=== PATIENT | male | born 1965 | race Caucasian/White ===

== ENCOUNTER 2018-07-03 09:13 | Inpatient (IN) ==
--- NOTE | 2018-07-03 07:31 | Anesthesia Evaluation PreOp ---
<[place] - Last Filed: 07/03/18 07:32> Date of Encounter: 07/03/18 - Past History Planned Operation: R robo total hip Cardiac History: HTN Pulmonary History: COPD Anesthesia History: Past Anesthesia (previous MAC 3 grade 2,) Alcohol Use: none Drug use: none Medications and Allergies Aspirin Enteric Coated [Aspirin EC] 325 mg PO BID #20 tablet. 07/03/18 [Rx] OxyCODONE Immed Rel [Roxicodone 5 MG] 5 mg PO Q6HR PRN 5 Days #20 tablet 07/03/18 [Rx] Allergy/AdvReac Type Severity Reaction Status Date / Time acetaminophen [From Tylenol] AdvReac See Verified 07/03/18 10:39 Comments - Meds/Allergy Pre-op Review Medications Reviewed: Yes Allergies Reviewed: Yes Anesthesia Results - Labs Laboratory Tests 06/25/18 06/25/18 06/25/18 14:39 14:39 14:39 WBC 11.0 Hgb 16.1 Hct 46.6 Plt Count 414 H PT 11.8 INR 1.0 APTT 34.0 Sodium 135 L Potassium 3.6 Chloride 101 Carbon Dioxide 24 BUN 15 Creatinine 1.06 Est GFR (Non-Af Amer) > 60 - Imaging EKG: report reviewed (sinus) <Ralph Hernandez - Last Filed: 07/03/18 10:41> Date of Encounter: 07/03/18 Time of Encounter: 10:37 - Past History Cardiac History: Other (EXCELLENT EXCERCISE TOLERANCE PRIOR TO HIP PAIN) Pulmonary History: Smoker (1-2 PPD) 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
[2018-07-03] MEDS ORDERED: CeFAZolin Syr 2,000MG/20 ML 2,000 MG/20 ML SYRINGE IVPB ONE (09:42)
[2018-07-03] MEDS ORDERED: Albuterol 2.5 MG/3 ML NEBULIZER IH ONE (09:42)
[2018-07-03] MEDS ORDERED: Albuterol 2.5 MG/3 ML NEBULIZER ONE (09:45)
[2018-07-03] MEDS: Ringers Solution, Lactated 1,000 ML IVC SCH ×2 (09:51→13:36)
--- NOTE | 2018-07-03 10:07 | History & Physical Report ---
Date of Encounter: 07/03/18 Time of Encounter: 10:07 24 Hour HP Update - Instructions Instructions: If the History and Physical is less than 30 days old and was completed prior to A.M. admission and or procedure and has NOT been updated on calendar day of procedure please complete this update prior to performing procedure. - Update Patient reports changes in Medical Condition: No Changes in examination, assessment, or condition: No Changes in Medication: No Preop tests/diagnostics Reviewed: Yes Surgery Remains Indicated: Yes Consent for Planned Operative Procedure(s) Verified: Yes - Pre-Operative Checklist Preoperative Checklist Indicated: No Prophylactic Antibiotic Ordered: Yes Is VTE Prophylaxis Indicated?: Yes
[2018-07-03] MEDS ORDERED: Acetaminophen IV 1,000 MG/100 ML INFUS..BTL IVPB ONE (10:33)
[2018-07-03] MEDS ORDERED: *HR* Methadone 10 MG TABLET PO ONE ×2 (10:33→10:44)
[2018-07-03] MEDS ORDERED: *HR* HYDROmorphone (PF) 1 MG/ML SYRINGE IVP PRN (10:34)
[2018-07-03] MEDS ORDERED: Famotidine 20 MG/2 ML VIAL IVP ONE (10:34)
[2018-07-03] MEDS ORDERED: *HR* OxyCODONE Immed Rel 5 MG TABLET PO PRN (10:34)
[2018-07-03] MEDS ORDERED: *HR* Promethazine 25 MG/ML VIAL IVP PRN (10:34)
[2018-07-03] MEDS ORDERED: *HR* Meperidine 25 MG/ML SYRINGE IVP PRN (10:34)
--- NOTE | 2018-07-03 10:37 | Discharge Summary ---
<Donato Conklin - Last Filed: 07/03/18 10:35> Orders not resulted at time of discharge: Pending orders 07/03/18 10:08 XR hip complete RT [XR] Routine Hemoglobin and Hematocrit [HEME] Routine Date of Encounter: 07/03/18 - Discharge Diagnosis (1) Arthritis of right hip Priority: Primary Status: Chronic (2) Obesity (BMI 30.0-34.9) Priority: Secondary Status: Chronic (3) Hypertension Priority: Secondary Status: Chronic Qualifiers: Hypertension type: unspecified Qualified Code(s): I10 - Essential (primary) hypertension (4) COPD (chronic obstructive pulmonary disease) Priority: Secondary Status: Chronic Qualifiers: COPD type: unspecified COPD Qualified Code(s): J44.9 - Chronic obstructive pulmonary disease, unspecified - Hospital Course Hospital course: Mr. Singh is a 53 year old male - Time Spent with Patient Total time spent providing and/or coordinating discharge services: - Discharge Medications Home Medications: Albuterol Sulfate [Ventolin Hfa] 2 puff IH Q6H PRN 07/03/18 [History] Aspirin Enteric Coated [Aspirin EC] 325 mg PO BID #20 tablet. 07/03/18 [Rx] Budesonide/Formoterol 160/4.5 [Symbicort 160/4.5] 2 puff IH DAILY 07/03/18 [History] Celecoxib [Celebrex] 200 mg PO DAILY 07/03/18 [History] Lisinopril/Hydrochlorothiazide [Zestoretic 10-12.5 mg Tablet] 1 tab PO DAILY 07/03/18 [History] Omeprazole [PriLOSEC] 20 mg PO DAILY 07/03/18 [History] OxyCODONE Immed Rel [Roxicodone 5 MG] 5 mg PO Q6HR PRN 5 Days #20 tablet 07/03/18 [Rx] Tramadol HCl [Ultram] 50 mg PO QID PRN 07/03/18 [History] Docusate [Colace] 100 mg PO BID capsule 07/04/18 [Rx] Allergies/Adverse Reactions: Allergy/AdvReac Type Severity Reaction Status Date / Time acetaminophen [From Tylenol] AdvReac See Verified 07/03/18 10:39 Comments Primary care physician: Ephraim Lim MD - Patient Status Disposition: Home Health Service Condition: Good - Discharge Instructions Follow Up With: Ephraim Lim MD [Primary Care Provider] - Additional Instructions: Discharge Instructions: Total Hip Replacement Please call [facility] ([phone]), your Primary Care Physician, or report to the Emergency Room if you have any of the following symptoms: Nausea, vomiting, fever greater that 101.5, swelling, chest pain, shortness of breath, increased pain/redness/drainage/odor for your incision site, numbness/tingling, or any other concerning symptoms. ACTIVITY:Weight-bearing as tolerated for 8 weeks with hip dislocation precautions that physical therapy taught you. You may progress as tolerated under the guidance of your physical therapist. You do not need to sleep with a pillow between your legs. You can also seep on the operative side or on your stomach. Incentive Spirometer 10 times an hour. MEDICATIONS: Upon discharge resume your home medications. Take all the medications as prescribed. Take a stool softener if taking narcotic pain medications. Stool softeners are only effective if you drink enough fluids. D rink 6-8 glass of water or fluids a day, unless this is not allowed for another health problem. Despite using stool softeners, if you haven't had a bowel movement in 3 days, please switch to a gentle laxative. Gentle laxatives are sold over the counter. You should have a bowel movement within 24 hours, if not call the office. You will be discharged from the hospital with a prescription for pain medication. You are encouraged to decrease the use of narcotic pain medication as tolerated. Should you require a refill, please call the office. [facility] prescribes narcotic pain medication for only 4-6 weeks after surgery. If you require pain medication beyond this time period, you may be referred to your Primary Care Physician or to the Pain Clinic for further evaluation. Plan ahead for refills on pain medication as many narcotics either need to be picked up at the office or mailed. It is best to call 48-72 hours in advance of needing a prescription refill so you don't run out of medication. To help control the post-operative pain, you may take NSAIDs (Aleve,Advil, Motrin, ibuprofen, naprosyn) or Tylenol as prescribed on the bottle in addition to the pain medication. ANTICOAGULATION (blood thinners): Continue your Aspirin, Lovenox or Coumadin as prescribed to help prevent a blood clot in the leg or in the lungs. As long as your incision remains dry and you tolerate the NSAIDs (Aleve, Advil, Motrin, Ibuprofen, Naprosyn), it is OK to use the NSAIDS while you are taking your anticoagulation medication. Should your incision start to drain, stop the NSAID and contact our office. Common symptoms of blood clot in the legs include: localized pain, swelling, calf tenderness, redness or discoloration of the skin. Blood clot in the lung symptoms include: shortness of breath, rapid pulse, sweating, and chest pain that worsens with deep breathing, coughing up blood, lightheadedness, feelings of anxiety. If you experience any of these symptoms notify your physician immediately, go to the emergency room, or if having trouble breathing, call 911. WOUND CARE: Leave the dressing on for 7 to 10days. You may change the dressing if it is saturated greater than 50%. Do not get the dressing wet at anytime. Wash your hands with antibacterial soap, rinse and dry prior to any wound care. If you have brian the visiting nurse or rehab facility can remove the stapes 10-14 days after surgery and place steri-strips across the wound. Leave the steri-strips in place until they fall off on their own. You may let water from the shower run on top of the steri-strips. If you do not have a visiting nurse or rehab facility, you will need to return to the office at 10-14 days for the brian to be removed. If you have itching or redness around the dressing call the office. FOLLOW-UP: Please follow up with your surgeon in the orthopedic clinic in 6 weeks from the day of surgery. If you have brian that need to be removed, you will need to come back to the office in 10-14 days from the day of surgery. <Sharda Petit - Last Filed: 07/04/18 14:03> Orders not resulted at time of discharge: Pending orders 07/03/18 12:40 Surgical Pathology [PTH] Routine 07/05/18 04:00 Basic Metabolic Panel AM 0400 Hemoglobin and Hematocrit [HEME] AM 0400 Date of Encounter: 07/04/18 Time of Encounter: 13:55 - Discharge Diagnosis (1) Status post total hip replacement, right Priority: Primary Status: Acute Comments: Opsite dressing, leave intact until first post-operative visit. If dressing becomes >50% saturated, contact office, remove dressing and place appropriate dressing in its place. Do not allow for dressing to get wet. Zipline/[place] in place, plan to remove at post-operative day #14-16. Total Joint Precautions x 6 weeks Apply cold therapy wrap 3-6x/day for 20 minutes at a time. Encourage ambulation throughout the day Use Incentive spirometer 10x/hour. Elevate affected extremity above heart as tolerated. Brace: Wear hip abductor brace at night x 6 weeks. (2) Arthritis of right hip Priority: Primary Status: Chronic (3) COPD (chronic obstructive pulmonary disease) Status: Chronic Qualifiers: COPD type: unspecified COPD Qualified Code(s): J44.9 - Chronic obstructive pulmonary disease, unspecified (4) Hypertension Status: Chronic Qualifiers: Hypertension type: unspecified Qualified Code(s): I10 - Essential (primary) hypertension (5) Obesity (BMI 30.0-34.9) Status: Chronic - Hospital Course Hospital course: Mr. Singh is a 53 year old male, status post Right THR 07/03. Patient had uneventful postoperative course. Stable for discharge. Patient seen at bedside, without complaints. A&O x 3 Afebrile, vital signs stable. Vital Signs Temp Pulse Resp BP Pulse Ox 07/04/18 10:53 97.9 F 82 16 142/80 95 07/04/18 06:58 97.7 F 75 18 126/82 95 07/04/18 03:50 98.2 F 67 16 135/81 96 07/03/18 22:48 97.3 F L 62 16 122/78 96 07/03/18 20:11 96 07/03/18 19:56 146/81 07/03/18 18:31 98.2 F 60 16 106/68 96 07/03/18 15:31 97.4 F L 60 18 99/75 98 07/03/18 14:43 97.6 F 54 14 139/81 100 07/03/18 14:05 97.5 F L 54 14 116/79 98 Intake and Output 07/03/18 07/04/18 07/04/18 23:59 07:59 15:59 Intake Total 720 / 720 100 / 100 360 / 360 Output Total 250 / 250 275 / 275 250 / 250 Balance 470 / 470 -175 / -175 110 / 110 Intake: IV Fluids 100 / 100 100 / 100 Ancef 2,000 MG In 0.9 % Sodium 100 / 100 100 / 100 Chloride 100 ML @ 200 mls/hr IVPB Q8H JAIME Rx#:[id number] Oral 620 / 620 360 / 360 Output: Urine 250 / 250 275 / 275 250 / 250 Other: Meal Dinner Lunch Percent of Meal Consumed 95% 50% # Voids 200 Weight 95.1 kg Patient Weight 07/04/18 23:59 Weight 95.1 kg Labs reviewed. H/H - stable, asymptomatic Short CBC 07/04/18 07/03/18 Range/Units 04:44 13:12 Hgb 11.5 L 12.5 L (12.9-16.9) g/dL Hct 33.9 L 36.5 L (37.5-50.1) % BMP 07/04/18 Range/Units 04:44 Sodium 135 L (136-145) mEq/L Potassium 3.7 (3.5-5.1) mEq/L Chloride 104 (98-107) mEq/L Carbon Dioxide 26 (23-29) mEq/L BUN 17 (6-20) mg/dL Creatinine 0.93 (0.70-1.30) mg/dL Glucose 109 H (70-105) mg/dL Calcium 8.5 L (8.6-10.3) mg/dL Pain control: adequate Participating in PT. All questions and concerns addressed. Educated on use of incentive spirometer. Encouraged ambulation and proper hydration. Patient educated on post-operative restrictions and post-operative care. Assessment and plan: Continue with postoperative care Discharge plan: Home with HH, discharge today - Time Spent with Patient Total time spent providing and/or coordinating discharge services: Date of admission: 07/03/18 14:05 Primary care physician: Ephraim Lim MD Consults: 07/03/18 13:54 Consult to Nurse Navigator [CONS] Routine Comment: ortho navigator Consult to Occupational Therapy [CONS] Routine Comment: Evaluate, develop and implement POC Reason for Consult: total hip replacement Does patient have active BEDREST order?: No Is patient medically & hemodynamically stable?: Yes Consult to Physical Therapy [CONS] Routine Comment: Evaluate, develop and implement POC Reason for Consult: total hip replacement Does patient have active BEDREST order?: No Is patient medically & hemodynamically stable?: Yes Consult to Adult Neuropsychologist [CONS] Routine Reason for SW Consult: post op joint replacement RT Post Op Consult [CONS] Routine Anticipated date of discharge: 07/04/18 Labs on day of discharge: Labs from last 24 hours 07/04/18 07/04/18 07/03/18 04:44 04:44 13:12 Hgb 11.5 L 12.5 L Hct 33.9 L 36.5 L Sodium 135 L Potassium 3.7 Chloride 104 Carbon Dioxide 26 BUN 17 Creatinine 0.93 Est GFR ( Amer) > 60 Est GFR (Non-Af Amer) > 60 BUN/Creatinine Ratio 18 Glucose 109 H Calculated Osmolality 282 Calcium 8.5 L - Impressions ITS Impressions Hip X-Ray 07/03/18 10:08 IMPRESSION: 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 D/ / Altaf Burkett MD / Altaf Burkett MD Interpreting Provider: Altaf Burkett MD - Patient Status Functional capacity at discharge: uses cane/walker Overall status at discharge: patient is progressing back to baseline
[2018-07-03] MEDS ORDERED: Famotidine 20 MG/2 ML VIAL ONE (10:44)
[2018-07-03] MEDS ORDERED: Acetaminophen IV 1,000 MG/100 ML INFUS..BTL ONE (10:44)
[2018-07-03] MEDS ORDERED: Lidocaine -MPF 1% 5 ML AMPUL ONE (11:01)
[2018-07-03] MEDS ORDERED: *HR* FentaNYL (PF) 100 MCG/2 ML VIAL ONE (11:05)
[2018-07-03] MEDS ORDERED: *HR* Midazolam HCl 2 MG/2 ML VIAL ONE (11:05)
[2018-07-03] MEDS ORDERED: Ethanol\\Acetic Acid\\Na Ace\\Ben 1,000 ML IRRIG.SOLN IR ONE (11:18)
--- NOTE | 2018-07-03 11:22 | Anesthesia Procedures ---
Date of Encounter: 07/03/18 Time of Encounter: 11:14 Procedures: Anesthesia - Epidural/Spinal Patient ID/Chart reviewed: Yes Patient examined: Yes Consent Obtained: Yes Supplemental Oxygen: Nasal Cannula Supplemental Oxygen Rate (L/min): 3 Sedation: Versed (mg): 2 Sedation: Fentanyl (mcg): 100 Site Prep: Aseptic Technique, Sterile prep and drape, Povidone-Iodine 1% Patient position: upright Local Anesthetic: Lidocaine 1% Amount of Local Anesthetic used: 3 Interspace Used: L4-L5 Loss of Resistance (PRIYA): No Blood: No CSF: Yes Paresthesia: No Spinal Needle Gauge: 25 (3.5" pencan needle) Spinal Dose: 3mL of 0.5% isobaric bupi Procedure: successful on 1st attempt; patient tolerated procedure well; VSS Vitals + FHT's: see holding vital signs note
[2018-07-03] MEDS ORDERED: Propofol 500 MG/50 ML INFUS..BTL ONE ×2 (11:28→12:28)
[2018-07-03] MEDS ORDERED: EPHEDrine 50 MG/ML VIAL ONE (12:01)
[2018-07-03] MEDS ORDERED: *HR* PHENYLEPHRINE 1,000 MCG/10 ML SYRINGE IVP ONE (12:03)
--- NOTE | 2018-07-03 12:47 | Orthopedic Operative Note ---
Date of procedure: 07/03/18 Pre-op diagnosis: Right hip arthritis Post-op diagnosis: same Procedure: Procedure: Right Total Hip Replacment robotic-assisted Estimated blood loss: 200 cc Hardware: Metal and polyethylene replacement. Jonathan DM Cup: 60 cup Femoral size12 stem Head: 12head with Mirna Procedural Notes: Grade 4 arthritic changes femoral head acetabular socket, procedure performed with robotic assistance. 13 mm short operative versus nonoperative leg is measured by preoperative CT scan. Operative procedure: The patient was brought to the operating room and placed on the operating room table. After general anesthesia was administered the patient was placed in the lateral decubitus position with the operative leg up. All pressure points were padded appropriately and the head was stabilized in the neutral position. The operative extremity was prepped and draped in the sterile surgical fashion patient received IV antibiotic prior to skin incision. 3 Steinmann pins were placed in the iliac crest 3 cm proximal to the anterior superior iliac spine this was for the robotic-assisted sensor. This was done through a small 2 cm incision. A standard posterior approach is made to the operative hip, the incision was made through the skin and subcutaneous tissue hemostasis was obtained with Bovie cautery. Using careful sharp dissection the fascia was identified and incised exposing the external rotators. The greater trochanter was marked, and length was measured at this time utilizing robotic assistance. The external rotators were released off the greater trochanter and tagged with #2 FiberWire suture. The capsule was T'd open and the hip was brought into internal rotation. Patient noted to have grade 4 arthritic changes femoral head. The femoral neck cut was made at the appropriate level roughly 15 mm proximal to the lesser trochanter aced on preoperative templating. An anterior capsulotomy was performed for the anterior retractor. Soft tissues removed from the acetabulum. Patient noted to have grade 4 arthritic changes acetabulum. The acetabulum reference point was confirmed. The acetabulum was then mapped with robotic assistance. Based on the preoperative plan the acetabulum was reamed in one step with a 59 reamer. The 60 acetabulum was impacted with robotic assistance and 40 degrees of abduction and 18 degrees of anteversion. The hip was brought back in to internal rotation and prepared with the box truck owner operator followed by the canal finder followed by the reaming process to a size 11/12 broaching process in 20 degrees anteversion. It was broached up to the appropriate size12 Trial reduction revealed leg lengths close to normal. The femoral implant was impacted in place in 20 degrees of anteversion. Trial reduction found the hip to be stable with 12 head and Mirna. The trials were removed and the real implants were impacted in place. The hip was reduced, patient had robotic confirmed leg length of2 mm longer than the contralateral side. The hip had excellent stability with forward flexion to 90 degrees adduction of 30 degrees and internal rotation of 60 degrees. The hip had no shuck. The hip sat with an antibacterial solution. It was irrigated out with 2 L of pulse irrigation. The Steinmann pins were removed. The deep tissue was irrigated and closed deep with #1 PDS suture superficially with 0 PDS suture and skin was closed with Dermabond and zip tie. The patient was placed in a sterile dressing and abduction pillow. The patient was extubated and transferred to the recovery room in stable condition. Anesthesia: spinal Surgeon: Donato Conklin Was there an metal forger's assistant present: No Estimated blood loss (cc): 200 Condition: stable Disposition: PACU
--- NOTE | 2018-07-03 13:35 | Anesthesia Evaluation Post Op ---
Date of Encounter: 07/03/18 Time of Encounter: 13:34 - Vital Signs Vital Signs: Vital Signs Temp Pulse Resp BP Pulse Ox 07/03/18 13:25 98.5 F 54 14 112/79 97 07/03/18 13:15 54 16 109/77 99 07/03/18 13:05 54 14 102/84 96 07/03/18 12:55 97.9 F 63 16 101/72 99 07/03/18 11:38 81 18 125/80 96 07/03/18 11:34 72 18 128/75 96 07/03/18 11:29 72 16 128/78 97 07/03/18 11:26 75 18 131/87 97 07/03/18 11:24 76 18 137/83 96 07/03/18 11:20 82 18 141/88 96 07/03/18 11:16 80 18 118/82 96 07/03/18 11:05 64 18 156/106 97 07/03/18 09:53 18 147/97 95 07/03/18 09:41 97.8 F 72 18 147/97 95 Intake and Output 07/02/18 07/03/18 07/03/18 23:59 07:59 15:59 Output Total 200 / 200 Balance -200 / -200 Output: Estimated Blood Loss 200 / 200 Other: Weight 94.801 kg Patient Weight 07/03/18 23:59 Weight 94.801 kg - Lungs Lungs: Clear Ascult./Percussion - Airway Airway: Non-obstructed - Cardiovascular Regular Rate - Mental Status Mental Status: Alert & Oriented, Answers Appropriately - Pain Pain Scale: 0 - Nausea Vomiting Nausea Vomiting: Not Present - Hydration Hydration: NPO, Tolerates oral liquids
[2018-07-03] MEDS ORDERED: Naloxone 0.4 MG/ML INJ IVP PRN (13:54)
[2018-07-03] MEDS ORDERED: Sennosides 8.6 MG TABLET PO PRN (13:54)
[2018-07-03] MEDS ORDERED: *HR* OxyCODONE/APAP 5/325 TABLET PO PRN (13:54)
[2018-07-03] MEDS ORDERED: Temazepam 15 MG CAPSULE PO PRN (13:54)
[2018-07-03] MEDS ORDERED: MOM Conc 10 ML UD.LIQ PO PRN (13:54)
[2018-07-03] MEDS ORDERED: Ringers Solution, Lactated 1,000 ML IVC SCH (13:54)
[2018-07-03] MEDS ORDERED: Ondansetron 4 MG/2 ML VIAL IVP PRN (13:54)
[2018-07-03 13:59] LABS: Hematocrit 36.5 % (37.5-50.1); Hemoglobin 12.5 g/dL (12.9-16.9)
[2018-07-03] MEDS: *HR* OxyCODONE Immed Rel 5 MG TABLET PO PRN ×2 (14:40→20:03)
[2018-07-03] MEDS: *HR* Enoxaparin 30 MG/0.3 ML SYRINGE SQ SCH (16:37)
[2018-07-03] MEDS: Ascorbic Acid 500 MG TABLET PO SCH (16:37)
[2018-07-03] MEDS: traMADol 50 MG TABLET PO PRN ×2 (16:37→23:10)
[2018-07-03] MEDS ORDERED: *HR* Enoxaparin 30 MG/0.3 ML SYRINGE SQ SCH (18:00)
[2018-07-04] MEDS: *HR* OxyCODONE Immed Rel 5 MG TABLET PO PRN ×4 (00:14→13:04)
[2018-07-04] MEDS: *HR* Enoxaparin 30 MG/0.3 ML SYRINGE SQ SCH (05:34)
[2018-07-04 06:02] LABS: Hematocrit 33.9 % (37.5-50.1); Hemoglobin 11.5 g/dL (12.9-16.9)
[2018-07-04 06:21] LABS: BUN/Creatinine Ratio 18 (6-26); Blood Urea Nitrogen 17 mg/dL (6-20); Calcium 8.5 mg/dL (8.6-10.3); Carbon Dioxide 26 mEq/L (23-29); Chloride 104 mEq/L (98-107); Glucose 109 mg/dL (70-105); Osmolality,Calculated 282 (280-300); Potassium 3.7 mEq/L (3.5-5.1); Sodium 135 mEq/L (136-145); eGFR For Non-African Americans > 60 (> 60)
--- NOTE | 2018-07-04 06:44 | Orthopedics Progress Note ---
Date of Encounter: 07/04/18 Time of Encounter: 06:44 - Assessment and Plan (1) Arthritis of right hip Current Visit: Yes Status: Chronic (2) Obesity (BMI 30.0-34.9) Current Visit: Yes Status: Chronic (3) Hypertension Current Visit: Yes Status: Chronic Qualifiers: Hypertension type: unspecified Qualified Code(s): I10 - Essential (primary) hypertension (4) COPD (chronic obstructive pulmonary disease) Current Visit: Yes Status: Chronic Qualifiers: COPD type: unspecified COPD Qualified Code(s): J44.9 - Chronic obstructive pulmonary disease, unspecified Subjective Interval history: Patient was seen this morning doing well without complaints. Afebrile vital signs stable. Operative extremity: Neurovascularly intact Dressing clean dry and intact Calves nontender Assessment and plan: Continue with postoperative care Hemoglobin 11 plan for discharged Objective Vital signs: Vital Signs Temp Pulse Resp BP Pulse Ox 07/04/18 03:50 98.2 F 67 16 135/81 96 07/03/18 22:48 97.3 F L 62 16 122/78 96 07/03/18 20:11 96 07/03/18 19:56 146/81 07/03/18 18:31 98.2 F 60 16 106/68 96 07/03/18 15:31 97.4 F L 60 18 99/75 98 07/03/18 14:43 97.6 F 54 14 139/81 100 07/03/18 14:05 97.5 F L 54 14 116/79 98 07/03/18 13:35 98.5 F 56 13 111/85 98 07/03/18 13:25 98.5 F 54 14 112/79 97 07/03/18 13:15 54 16 109/77 99 07/03/18 13:05 54 14 102/84 96 07/03/18 12:55 97.9 F 63 16 101/72 99 07/03/18 11:38 81 18 125/80 96 07/03/18 11:34 72 18 128/75 96 07/03/18 11:29 72 16 128/78 97 07/03/18 11:26 75 18 131/87 97 07/03/18 11:24 76 18 137/83 96 07/03/18 11:20 82 18 141/88 96 07/03/18 11:16 80 18 118/82 96 07/03/18 11:05 64 18 156/106 97 07/03/18 09:53 18 147/97 95 07/03/18 09:41 97.8 F 72 18 147/97 95 Intake and Output 07/03/18 07/03/18 07/04/18 15:59 23:59 07:59 Intake Total 1000 / 1000 720 / 720 Output Total 200 / 200 250 / 250 275 / 275 Balance 800 / 800 470 / 470 -275 / -275 Intake: IV Fluids 1000 / 1000 100 / 100 Lactated Ringers 1,000 ML @ 25 1000 / 1000 mls/hr IVC .Q24H JAIME Rx#: [id number] Ancef 2,000 MG In 0.9 % Sodium 100 / 100 Chloride 100 ML @ 200 mls/hr IVPB Q8H JAIME Rx#:[id number] Oral 620 / 620 Output: Urine 250 / 250 275 / 275 Estimated Blood Loss 200 / 200 Other: Meal Dinner Percent of Meal Consumed 95% Weight 94.801 kg 95.1 kg Patient Weight 07/04/18 23:59 Weight 95.1 kg - Labs CBC & BMP: 07/04/18 04:44 07/04/18 04:44 Labs: Abnormal lab results Hgb 11.5 g/dL (12.9-16.9) L 07/04/18 04:44 Hct 33.9 % (37.5-50.1) L 07/04/18 04:44 Sodium 135 mEq/L (136-145) L 07/04/18 04:44 Glucose 109 mg/dL (70-105) H 07/04/18 04:44 Calcium 8.5 mg/dL (8.6-10.3) L 07/04/18 04:44 Consult Discharge Plan - Plan Referrals: Ephraim Lim MD [Primary Care Provider] -
[2018-07-04] MEDS: Ascorbic Acid 500 MG TABLET PO SCH (07:42)
[2018-07-04] MEDS ORDERED: Multivit/Ca/Min/Fe/FA 1 TAB TABLET PO SCH (09:00)
[2018-07-04 10:53] VITALS: BP 142/80
--- NOTE | 2018-07-04 14:04 | Physician Discharge Referral ---
Home Health/Hosp Referral Info Transfer to: Home Health Provider in Charge Post Discharge: PCP - Diagnosis (1) Status post total hip replacement, right Priority: Primary Status: Acute (2) Arthritis of right hip Priority: Primary Status: Chronic (3) COPD (chronic obstructive pulmonary disease) Status: Chronic (4) Hypertension Status: Chronic (5) Obesity (BMI 30.0-34.9) Status: Chronic - Respiratory Orders Smoking Cessation: Smoking cessation has been advised. For more information, call the [place] Tobacco Quit Line at 8-667-XSAI-NOW. - Diet/Nutrition Diet/Nutrition Orders: Regular - Activity Activity Orders: Up ad veena, Ambulate, Walker - Services Needed Following services are medically necessary services: Nursing, Home Health Aide, Physical Therapy, Occupational Therapy Home Care Orders: Opsite dressing, leave intact until first post-operative visit. If dressing becomes >50% saturated, contact office, remove dressing and place appropriate dressing in its place. Do not allow for dressing to get wet. Zipline/[place] in place, plan to remove at post-operative day #14-16. Total Joint Precautions x 6 weeks Apply cold therapy wrap 3-6x/day for 20 minutes at a time. Encourage ambulation throughout the day Use Incentive spirometer 10x/hour. Elevate affected extremity above heart as tolerated. Brace: Wear hip abductor brace at night x 6 weeks. - Transfer Medications Home Medications: Albuterol Sulfate [Ventolin Hfa] 2 puff IH Q6H PRN 07/03/18 [History] Aspirin Enteric Coated [Aspirin EC] 325 mg PO BID #20 tablet. 07/03/18 [Rx] Budesonide/Formoterol 160/4.5 [Symbicort 160/4.5] 2 puff IH DAILY 07/03/18 [History] Celecoxib [Celebrex] 200 mg PO DAILY 07/03/18 [History] Lisinopril/Hydrochlorothiazide [Zestoretic 10-12.5 mg Tablet] 1 tab PO DAILY 07/03/18 [History] Omeprazole [PriLOSEC] 20 mg PO DAILY 07/03/18 [History] OxyCODONE Immed Rel [Roxicodone 5 MG] 5 mg PO Q6HR PRN 5 Days #20 tablet 07/03/18 [Rx] Tramadol HCl [Ultram] 50 mg PO QID PRN 07/03/18 [History] Docusate [Colace] 100 mg PO BID capsule 07/04/18 [Rx] Allergies/Adverse Reactions: Allergy/AdvReac Type Severity Reaction Status Date / Time acetaminophen [From Tylenol] AdvReac See Verified 07/03/18 10:39 Comments Certification: Further, I certify that my clinical findings support that this patient is homebound (i.e. absences from home require considerable and taxing effort and are for medical reasons or adventist services or infrequently or short duration when for other reasons) because: Homebound Reason: Post-surgery restriction and or conditions limit ability to leave home Attestation: My signature below is to certify that this patient is under my care and that I, or nurse practitioner, or a physician's industrial hire sales assistant working with me, has a [id number] encounter with this patient.
== END 2018-07-04 14:00 | disposition home health service (06) | DRG 302 ==
LOC: SAMDAY 09:13 → 3NENU 14:05
PROVIDERS: ADMIT Orthopaedic Surgery; ATTEND Orthopaedic Surgery